=== PATIENT | female | born 2005 | race African-American/Black ===

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

== ENCOUNTER 2025-03-30 13:46 | Emergency (ER) | payer BC, OTHER, SELFPAY ==
[2025-03-30] VITALS (19 sets, daily range): BP systolic 71–97; BP diastolic 36–74
--- NOTE | 2025-03-30 15:01 | ED.GENMED ---
History of Present Illness
General
Chief Complaint: Blood Pressure Problem
Source: [facility] and previous hospital records
Exam Limitations: non verbal-adult
Time Seen by Provider: 03/30/25 14:21
Nursing documentation reviewed up to this point in time: agreed with
History of Present Illness
History of Present Illness:
The patient is a 19-year-old female from pediatric specialty cares who arrives with concerns for hypotension. Reportedly, patient had a systolic blood pressure in the 60s. The facility denies any respiratory symptoms. Patient is chronically
trached and on the ventilator. She is not able to offer any history. Patient has a history of epilepsy and cerebral palsy. Patient is generally hospitalized at [facility]. Systolic blood pressure 80s in our emergency department. Patient given
solucortef 100mg prior to arrival
Past History
Past History
ED Past Medical History: Seizures and Other (Cerebral palsy, bradycardia)
ED Past Surgical History: Other (Tracheostomy, PEG tube)
Social History
Tobacco: Non-smoker
Alcohol: None
Drug: None
Personal: Single
Living: [facility]
Employment: Other
Family History
Family History: Other
Review of Systems
Review of Systems
Allergies reviewed?: Yes
Unable to obtain full review of systems at this time due to: non-verbal
Other source history: transfer record
All Other Systems: Not applicable
Phy Exam
Physical Exam
Physical Exam:
Physical Exam
General: no apparent distress, patient appears extremely small for her age, chronically ill, trach in place on ventilator
Neck: supple. Trach in place, moist mucous membrane
Heart: Bradycardia
Lungs: no acute respiratory distress. Bilateral rhonchi
Abdomen: normal bowel sounds. not tender. PEG tube site dry and intact. Abdomen is soft throughout
Neuro: Noninteractive, moves all extremities equally
Skin: no rash
Psychiatric: well kept.
Extremities: no edema.
Course
Orders/Labs/Results
Orders:
Orders
03/30/25 13:54
Electrocardiogram (*1) Urgent
Reason for Study: Bradycardia / Tachycardia
EKG- Treatment ONCE
03/30/25 14:51
CR Chest Portable - 1 View Urgent
Comment:
Reason For Exam: hypotension
Reason Study Needs to be Portable: Unable to Transport
03/30/25 14:59
COVID-19 Antigen Urgent
Source: Nasal Swab
Urinalysis Reflex To Culture Urgent
Date Specimen was Collected: 03/30/25
Time Specimen was Collected: 14:56
Urine Microscopic Reflex Cult Urgent
INF RAPID [Influenza A+B Rapid Molecular] Urgent
[place] Source: Nasal Swab
Specimen Description:
Urine Culture Urgent
[place] Source: U
Specimen Description:
Date Specimen was Collected: 03/30/25
Time Specimen was Collected: 14:56
03/30/25 15:15
0.9% Sodium Chloride 250 ml [Nss] 250 ml IV BOLUS
03/30/25 16:38
Basic Metabolic Panel Urgent
Complete Blood Count/With Diff Urgent
Lactic Acid Urgent
Blood Culture Q30M
[place] Source: Blood/Venous
Specimen Description:
03/30/25 17:43
Piperacillin 60 mg/ml [ZOSYN (/Ped)] 3,000 mg Syringe [Syringe-Pump] 0 ml IV NOW
03/30/25 18:18
Piperacillin/Tazo 3.375 Gram [Zosyn] 3.375 gram in 50 ml IV NOW
03/30/25 19:03
0.9% Sodium Chloride 250 ml [Nss] 250 ml IV BOLUS
03/30/25 19:19
Blood Culture Q30M
[place] Source: Blood/Venous
Specimen Description:
Abnormal Lab Results
03/30/25 03/30/25
14:59 16:38
WBC 18.8 H 10^3/uL
(4.8-10.8)
MCH 32.1 H pg
(27.0-31.0)
RDW 14.6 H %
(11.5-14.5)
MPV 10.5 H fL
(7.4-10.4)
Abs Immat Gran (auto) 0.1 H 10^3/uL
(0-0.05)
Absolute Neuts (auto) 16.8 H 10^3/uL
(1.4-6.5)
Immature Gran % 0.7 H %
(0-0.5)
Neutrophils % 89.3 H %
(42.2-75.2)
Lymphocytes % 8.0 L %
(20.5-51.1)
Monocytes % 1.2 L %
(1.7-9.3)
Calcium 10.5 H mg/dl
(8.4-10.2)
Ur Occult Blood Reflex 2+ A
(Negative)
Leukocyte Esterase Rfl 3+ A
(Negative)
Urine WBC (Reflex) 30-40 A /HPF
(0-5)
Urine Bacteria (Reflex) Moderate A
(Negative)
Urine Albumin (Reflex) 2+ A
(Neg - Trace)
03/30/25 16:38
03/30/25 16:38
Vital Signs
Initial and Last Documented VS:
Initial Vital Signs
BP
97/74
03/30/25 13:50
Last Documented Vital Signs
Temp Pulse Resp BP Pulse Ox
97.3 F 45 10 71/42 100
03/30/25 16:57 03/30/25 19:00 03/30/25 19:00 03/30/25 19:00 03/30/25 19:00
MDM/Problems Addressed
Differential Diagnosis Includes:
Acute dehydration, sepsis, acute hyponatremia
MDM/Problems Addressed:
Patient presents with acute hypotension
Chronic conditions affecting care:
Chronic respiratory failure
Acute Exacerbation and/or Progression of Chronic Illness:
Patient appears comfortable on ventilator and shows no sign of respiratory distress. I do not see signs of acute respiratory distress on ventilator
*Radiology
Radiology exam reviewed: preliminary read by ED provider (Chest x-ray reviewed by me. Tube in place. No obvious infiltrate. Dilated loops of bowel as previous) and radiology read reviewed
*Pulse Oximetry
Patient hypoxic: no
Comment: Patient is at 100% on an FiO2 of 30% on the ventilator
*EKG
Interpreted by ED Provider?: Yes
Interpretation: abnormal
Comparison EKG: no changes
Rate: bradycardiac
Rhythm: sinus
[place]: normal axis
Interval: normal interval
QRS Pattern: normal QRS
Ischemia: non-specific ST changes
*Trimmer Sawyer Interpretation
Rate: bradycardiac
Interpretation: abnormal
Rhythm: sinus
*Critical Care Note
Total Time (30-74mins, 75-104mins- exclusive of procedures): 65 minutes
comment:
65 minutes of critical care given to patient including frequent reassessments of her mental status, blood pressure and heart rate. Time spent speaking to [facility] PICU team as well as reviewing her prior medical records and hospital records as well as
[facility] records
Data Reviewed
Review of Other/Old Records Reveals: Labs (Patient's urine culture showed Klebsiella in 2023)
Update Note
Update Note:
At 2:50 PM I did call patient's father, Winston Chandler and left a detailed message for him to call me back. I also tried to call patient's mother, however, the phone number did not go through
3:30 PM I did go over the case with [facility] transfer center and Dr. Pelayo (PICU doctor at [facility]) who felt that I should touch base with them in about an hour while waiting for patient's blood work to come back as well as monitoring for any hypotension
in the ED. Given patient has been at her baseline systolic blood pressure in the ED since arrival, and is afebrile, she may not be septic and need transfer
4:30 PM patient's mean arterial blood pressure at times drops and patient's white blood cell count is 18.8. Case discussed again with [facility] PICU who was agreeable to transfer. Recommended IV Zosyn and IV fluids. Patient already got stress dose
steroids prior to arrival to ED today
5:30 PM IR placed by me for IV access in the left lower leg. Patient tolerated procedure well. Will now administer IV fluids and IV Zosyn. IV appears to infiltrate. IO placed in right lower extremity with good blood return
Unfortunately right-sided IO line seem to infiltrate as well.
Peripheral IV line started
ED Attending Note
-
Portions of this chart may have been created with voice recognition software.� Occasional wrong word or��sound alike� substitutions may have occurred due to the inherent limitations of voice recognition software.
Discharge Plan
Departure
Patient Disposition: Pediatric Hospital
Date of Disposition: 03/30/25
Time of Disposition: 17:11
Admit to doctor: Dr Grey
Patient with high blood pressure during this ER visit?: No
Condition: Fair
Covid-19: Negative COVID-19
Discharge Problem:
Transient hypotension, Acute UTI, Leukocytosis
Prescriptions:
No Action
polyethylene glycol 3350 17 GRAMS powder in packet
17 grams feeding tube .0400+1700
baclofen 10 MG tablet
10 mg feeding tube TID
hydrocortisone 10 MG tablet
5 mg feeding tube .1000 +2200
Patient Comments:
03/09/22: 20mg via tube q8hprn stress dose fever, severe diarrhea, viral/bacterial illness, vomiting, serious injury. give for 24 hours and up to 72 hours
ibuprofen [Children's Ibuprofen] 100 MG/5 ML suspension
1 dose feeding tube Q6HPRN PRN (Reason: pain, temp > 101)
Patient Comments:
10 mg/kg/dose
chlorhexidine gluconate 15 ML mouthwash
10 ml mucous membrane BID
Patient Comments:
07/08/21: 10mL orally BID for oral care to swab mouth then suction (do not swallow)
levetiracetam 500 MG/5 ML solution
600 mg feeding tube TID
acetaminophen [Children's Acetaminophen] 160 MG/5 ML suspension
1 dose feeding tube Q6HPRN PRN (Reason: fever,pain,discomfort)
Patient Comments:
28-32.9kg=12.5ml, 33-43.9=15ml,>=44kg=20ml
sennosides [senna] 8.6 MG tablet
17.2 mg feeding tube BID
magnesium oxide [MagOx] 400 MG tablet
200 mg feeding tube QPM
bisacodyl [OneLAX Bisacodyl] 10 MG suppository
10 mg IA Q48H
Enema 135 ML enema
118 ml IA [id number] PRN (Reason: constipation)
benzoyl peroxide [Desquam-X] 140 ML cleanser
1 applic topical BID
white petrolatum 113 GM gel
1 applic topical PRN PRN (Reason: nasal dryness/bleeding)
phenobarbital 32.4 MG tablet
32.4 mg feeding tube BID@0800,2000
calcium carbonate 500 MG/5 ML suspension
1,000 mg feeding tube QPM
cholecalciferol (vitamin D3) 10 MCG/ML drops
400 unit feeding tube DAILY
selenium 200 MCG capsule
50 mcg feeding tube QPM
Mineral Oil Medium 500 ML oil
1 applic topical [id number] PRN (Reason: extreme dry scalp)
Patient Comments:
apply to scalp leave on overnight , wash off in morning
diazepam 20 mg Kit
15 mg IA Q5MPRN PRN (Reason: seizure)
sulfamethoxazole-trimethoprim [Sulfatrim] 200-40 mg/5 mL Suspension
8 ml feeding tube DAILY
hydrocortisone 10 mg Tablet
20 mg feeding tube Q8HPRN PRN (Reason: stress dose fever)
[facility] 10 billion cell -200 mg Capsule
1 cap PO HS
clobazam [Onfi] 10 mg Tablet
10 mg feeding tube .1000+2200
pediatric multivitamin Solution
80 ml IV .0400
Cystex Cranberry 1,937-188 mg/15 mL Liquid
15 ml PO HS
Solu-Cortef 100 mg Recon Soln
100 mg IM BID PRN (Reason: severe illness,stress,vomits, no response)
Referrals:
Valeriano Perry DO [Family Provider, Pediatrics]
Hospital Transfer
Other hospital: [facility]
I certify that the patient requires transfer: Yes
Discussed case with accepting physician: Dr. Grey
Reason for transfer: continuity of care PCP
Interventions
Interventions:
*Risk Screen - Suicide Last Done: 03/30/25 14:03
*General Assessment Last Done: 03/30/25 14:03
*Neglect/Abuse Screening Last Done: 03/30/25 14:03
*ED- Fall Risk Assessment Last Done: 03/30/25 14:51
*ED COVID-19 Vaccine History Last Done: 03/30/25 14:51
Discharge Date and Time
Print Language: YORUBA
[2025-03-30 15:10] LABS: Urine Albumin 2+ (Neg - Trace); Urine Bilirubin Negative (Negative); Urine Character Clear (Clear); Urine Color Yellow; Urine Glucose Negative (Negative); Urine Ketone Negative (Negative); Urine Leukocyte 3+ (Negative); Urine Nitrite Negative (Negative); Urine Occult Blood 2+ (Negative); Urine Urobilinogen Negative (Neg - 1+)
[2025-03-30 15:19] LABS: Urine Squamous Cell 16-20 /LPF (Few)
[2025-03-30 15:20] LABS: Urine White Cell 30-40 /HPF (0-5)
[2025-03-30 15:21] LABS: Urine Bacteria Moderate (Negative); Urine Red Blood Cell 0-2 /HPF (0-2)
[2025-03-30 15:27] LABS: COVID-19 Antigen Negative (Negative)
[2025-03-30 16:49] LABS: % Basophils 0.4 % (0-2); % Eosinophils 0.4 % (0-6); % Immature Granulocytes 0.7 % (0-0.5); % Monocytes 1.2 % (1.7-9.3); % Neutrophils 89.3 % (42.2-75.2); Absolute Basophils 0.1 10^3/uL (0-0.2); Absolute Eosinophils 0.1 10^3/uL (0-0.7); Absolute Immature Granulocytes 0.1 10^3/uL (0-0.05); Absolute Lymphocytes 1.5 10^3/uL (1.2-3.4); Absolute Monocytes 0.2 10^3/uL (0.1-0.6); Absolute Neutrophils 16.8 10^3/uL (1.4-6.5); Hematocrit 43.6 % (37.0-47.0); Hemoglobin 15.3 g/dL (12.0-16.0); Mean Corp Hgb Conc. 35.1 g/dL (33.0-37.0); Mean Corpuscular Hgb 32.1 pg (27.0-31.0); Mean Corpuscular Volume 91.6 fL (81.0-99.0); Mean Platelet Volume 10.5 fL (7.4-10.4); Nucleated Red Blood Cells % 0 %; Platelet Count 397 10^3/uL (130-400); Red Blood Cell Count 4.76 10^6/uL (4.20-5.40); Red Cell Dist. Width 14.6 % (11.5-14.5); White Blood Cell Count 18.8 10^3/uL (4.8-10.8)
[2025-03-30 17:00] LABS: Lactic Acid 1.3 mmol/L (0.7-2.0)
[2025-03-30 17:04] LABS: Blood Urea Nitrogen 13 mg/dl (7-17); Calcium 10.5 mg/dl (8.4-10.2); Carbon Dioxide 26 mmol/L (22-30); Chloride 107 mmol/L (98-107); Glucose 89 mg/dl (70-99); Sodium 143 mmol/L (135-145); eGFR > 60.00
[2025-03-30] MEDS: NSS 250 IV ×2 (17:47→19:14)
[2025-03-30] MEDS: ZOSYN 50 IV (19:07)
== END 2025-03-30 20:07 | disposition designated cancer center or children's hospital (05) ==
LOC: EMR 13:46
PROVIDERS: Emergency Medicine; EMERGENCY PHYSICIAN Emergency Medicine; FAMILY PHYSICIAN Pediatrics
DX: N39.0 Urinary tract infection, site not specified (principal); R03.1 Nonspecific low blood-pressure reading; D72.829 Elevated white blood cell count, unspecified; G80.8 Other cerebral palsy; J96.10 Chronic respiratory failure, unspecified whether with hypoxia or hypercapnia; Z99.11 Dependence on respirator [ventilator] status; G40.909 Epilepsy, unspecified, not intractable, without status epilepticus; Z11.52 Encounter for screening for COVID-19
CPT/HCPCS: 99291; 96365; 96361; 71045; 80048; 81003; 81015; 83605; 85025; 87040; 87086; 87502; 87811; 93005; 94002

== ENCOUNTER 2025-09-03 09:01 | Emergency (ER) | payer BC, OTHER, SELFPAY ==
[2025-09-03 09:07] VITALS: BP 90/53
[2025-09-03 09:10] VITALS: BP 90/53
--- NOTE | 2025-09-03 09:23 | ED.GENMED ---
History of Present Illness
General
Chief Complaint: Breathing Problem
Source: patient
Time Seen by Provider: 09/03/25 09:12
History of Present Illness
History of Present Illness:
19-year-old female sent to the emergency room from [facility] where she was having issues with hypoxia. Symptoms began today. Patient also noted to be febrile today with a rectal temperature 101. Patient has a tracheostomy and is
chronically ventilated though usually just receiving room air through the ventilator. The staff at [facility] care had titrated her oxygen up to 5 L in order to get a sufficient pulse ox. They also provided neb treatment and changed her
trach. Despite this she continued to be hypoxic prompting her transfer to the emergency room. Patient has significant developmental delay and unable to provide any history. History is provided by the paramedics and by the facilities transfer
information.
Past History
Past History
ED Past Medical History: Seizures and Other (Cerebral palsy, bradycardia)
ED Past Surgical History: Other (Tracheostomy, PEG tube)
Social History
Tobacco: Non-smoker
Alcohol: None
Drug: None
Personal: Single
Living: assisted
Employment: Other
Family History
Family History: Other
Phy Exam
Physical Exam
Physical Exam:
General: Awake, nonverbal, no apparent distress, significant developmental delay and quite small for age
Vitals: Tachypneic,
Head: Atraumatic
Eyes: Pupils equal, EOMI
Neck: Trachea midline, tracheostomy in place
Lungs: Coarse breath sounds bilaterally
Heart: Regular rate, no murmurs
Abd: Soft, feeding tube noted, No pulsatile mass
Genitalia: Meraz in place
Neuro: Eyes open, does not follow commands, moves all 4 extremities spontaneously
Skin: Warm, dry, no rash
Extremities: pulses equal b/l, no edema
Course
Orders/Labs/Results
Orders:
Orders
09/03/25 09:16
0.9% Sodium Chloride 1000 ml [Nss] 620 ml IV BOLUS
CR Chest Portable - 1 View Urgent
Comment:
Reason For Exam: fever, hypoxia
Reason Study Needs to be Portable: Patient Unstable
09/03/25 09:20
Hydrocortisone Sod Succinate [Solu-Cortef] 100 mg IV NOW STA
09/03/25 09:23
Ipratropium/Albuterol Sulfate [Duoneb] 3 ml INH R NOW STA
09/03/25 10:28
COVID-19 Antigen Urgent
Source: Nasal Swab
Influenza A+B Rapid Molecular Urgent
[place] Source: Nasal Swab
Specimen Description:
Respiratory Syncytial Virus Urgent
[place] Source: Nasal Swab
Specimen Description:
Date Specimen was Collected: 09/03/25
Time Specimen was Collected: 09:31
09/03/25 10:46
Phenobarbital [S] Urgent
09/03/25 10:47
Basic Metabolic Panel Urgent
Complete Blood Count/With Diff Urgent
Venous Blood Gas Urgent
%Oxygen/Room Air: 40
Blood Culture, Pediatric Urgent
[place] Source: Blood/Venous
Specimen Description:
Date Specimen was Collected: 09/03/25
Time Specimen was Collected: 09:31
09/03/25 11:00
Clobazam (Non-Form) [Onfi] 10 mg TUBE BID
Phenobarbital [Luminal] 32.4 mg TUBE BID
09/03/25 11:06
Urinalysis Reflex To Culture Urgent
Date Specimen was Collected: 09/03/25
Time Specimen was Collected: 09:31
Urine Microscopic Reflex Cult Urgent
Urine Culture Urgent
[place] Source: U
Specimen Description:
Date Specimen was Collected: 09/03/25
Time Specimen was Collected: 09:31
09/03/25 12:29
Cefepime HCl [Maxipime] 1,500 mg 0.9% Sodium Chloride 50 ml [Nss] 50 ml IV NOW
09/03/25 13:03
Meraz [Meraz Placement- Treatment] ONCE
Reason for insertion: Chronic Meraz on Admit
09/03/25 14:00
Levetiracetam [Keppra] 600 mg TUBE TID@0400,1400,2100
Abnormal Lab Results
09/03/25 09/03/25
10:47 11:06
WBC 17.0 H 10^3/uL
(4.8-10.8)
MCH 31.5 H pg
(27.0-31.0)
MPV 10.7 H fL
(7.4-10.4)
Abs Immat Gran (auto) 0.1 H 10^3/uL
(0-0.05)
Absolute Neuts (auto) 15.0 H 10^3/uL
(1.4-6.5)
Absolute Lymphs (auto) 0.7 L 10^3/uL
(1.2-3.4)
Absolute Monos (auto) 1.1 H 10^3/uL
(0.1-0.6)
Neutrophils % 88.0 H %
(42.2-75.2)
Lymphocytes % 4.3 L %
(20.5-51.1)
VBG pO2 73 H mmHg
(30-50)
VBG HCO3 30.5 H mmol/L
(22-27)
Potassium 3.2 L mmol/L
(3.5-5.1)
Creatinine 0.5 L mg/dL
(0.6-1.0)
Ur Occult Blood Reflex 3+ A
(Negative)
Leukocyte Esterase Rfl 3+ A
(Negative)
Urine WBC (Reflex) 21-25 A /HPF
(0-5)
Urine Bacteria (Reflex) Many A
(Negative)
Urine Albumin (Reflex) 3+ A
(Neg - Trace)
09/03/25 10:47
09/03/25 10:47
Vital Signs
Initial and Last Documented VS:
Initial Vital Signs
Pulse Ox
99
09/03/25 09:04
Last Documented Vital Signs
Temp Pulse Resp BP Pulse Ox
99.6 F 57 15 75/48 99
09/03/25 09:10 09/03/25 12:15 09/03/25 12:15 09/03/25 12:00 09/03/25 11:32
MDM/Problems Addressed
Differential Diagnosis Includes:
Pneumonia, viral illness such as COVID, influenza, UTI, tracheitis
MDM/Problems Addressed:
Stress dose steroids administered given the patient's takes chronic steroids. White count is elevated. Could be from chronic steroid use or acute infection. Chest x-ray has new changes which certainly could be an acute pneumonia. IV antibiotics
administered. Patient will be transferred to [facility].
*Radiology
Radiology exam reviewed: radiology read reviewed
*Pulse Oximetry
SaO2: 98
Oxygen Mode of Delivery: Trach collar
Patient hypoxic: no
*Early Breastfeeding Care Specialist Interpretation
Rate: normal
Interpretation: normal
Rhythm: sinus
*Critical Care Note
Total Time (30-74mins, 75-104mins- exclusive of procedures): Not Applicable
ED Attending Note
-
Portions of this chart may have been created with voice recognition software.� Occasional wrong word or��sound alike� substitutions may have occurred due to the inherent limitations of voice recognition software.
Discharge Plan
Departure
Patient Disposition: Pediatric Hospital
Date of Disposition: 09/03/25
Time of Disposition: 11:43
Condition: Fair
Discharge Problem:
Hypoxia, Pneumonia
Prescriptions:
No Action
polyethylene glycol 3350 17 GRAMS powder in packet
17 grams feeding tube .0400+1700
baclofen 10 MG tablet
10 mg feeding tube TID
hydrocortisone 10 MG tablet
5 mg feeding tube .1000 +2200
Patient Comments:
03/09/22: 20mg via tube [id number] stress dose fever, severe diarrhea, viral/bacterial illness, vomiting, serious injury. give for 24 hours and up to 72 hours
ibuprofen [Children's Ibuprofen] 100 MG/5 ML suspension
1 dose feeding tube Q6HPRN PRN (Reason: pain, temp > 101)
Patient Comments:
10 mg/kg/dose
chlorhexidine gluconate 15 ML mouthwash
10 ml mucous membrane BID
Patient Comments:
07/08/21: 10mL orally BID for oral care to swab mouth then suction (do not swallow)
levetiracetam 500 MG/5 ML solution
600 mg feeding tube TID
acetaminophen [Children's Acetaminophen] 160 MG/5 ML suspension
1 dose feeding tube Q6HPRN PRN (Reason: fever,pain,discomfort)
Patient Comments:
28-32.9kg=12.5ml, 33-43.9=15ml,>=44kg=20ml
sennosides [senna] 8.6 MG tablet
17.2 mg feeding tube BID
magnesium oxide [MagOx] 400 MG tablet
200 mg feeding tube QPM
bisacodyl [OneLAX Bisacodyl] 10 MG suppository
10 mg WA Q48H
Enema 135 ML enema
118 ml WA [id number] PRN (Reason: constipation)
benzoyl peroxide [Desquam-X] 140 ML cleanser
1 applic topical BID
white petrolatum 113 GM gel
1 applic topical PRN PRN (Reason: nasal dryness/bleeding)
phenobarbital 32.4 MG tablet
32.4 mg feeding tube BID@0800,2000
calcium carbonate 500 MG/5 ML suspension
1,000 mg feeding tube QPM
cholecalciferol (vitamin D3) 10 MCG/ML drops
400 unit feeding tube DAILY
selenium 200 MCG capsule
50 mcg feeding tube QPM
Mineral Oil Medium 500 ML oil
1 applic topical [id number] PRN (Reason: extreme dry scalp)
Patient Comments:
apply to scalp leave on overnight , wash off in morning
diazepam 20 mg Kit
15 mg WA Q5MPRN PRN (Reason: seizure)
sulfamethoxazole-trimethoprim [Sulfatrim] 200-40 mg/5 mL Suspension
8 ml feeding tube DAILY
hydrocortisone 10 mg Tablet
20 mg feeding tube Q8HPRN PRN (Reason: stress dose fever)
[facility] 10 billion cell -200 mg Capsule
1 cap PO HS
clobazam [Onfi] 10 mg Tablet
10 mg feeding tube .1000+2200
pediatric multivitamin Solution
80 ml IV .0400
Cystex Cranberry 1,937-188 mg/15 mL Liquid
15 ml PO HS
Solu-Cortef 100 mg Recon Soln
100 mg IM BID PRN (Reason: severe illness,stress,vomits, no response)
Referrals:
Valeriano Perry DO [Family Provider, Pediatrics]
Hospital Transfer
Other hospital: [facility]
I certify that the patient requires transfer: Yes
Discussed case with accepting physician: Dr Hyde
Reason for transfer: availability of service
Interventions
Interventions:
*Risk Screen - Suicide Last Done: 09/03/25 11:26
*General Assessment Last Done: 09/03/25 09:03
*Neglect/Abuse Screening Last Done: 09/03/25 09:03
*ED- Fall Risk Assessment Last Done: 09/03/25 10:24
*ED COVID-19 Vaccine History Last Done: 09/03/25 10:25
*ED Influenza Vaccine History Last Done: 09/03/25 10:24
*Nursing Disposition Last Done: 09/03/25 13:15
ED- Cardiac Assessment Last Done: 09/03/25 10:24
ED- Pulmonary Assessment Last Done: 09/03/25 10:24
Discharge Date and Time
Discharge Date/Time: 09/03/25 13:50
Print Language: FAROESE
[2025-09-03 11:01] LABS: COVID-19 Antigen Negative (Negative)
[2025-09-03 11:04] LABS: Hematocrit 42.8 % (37.0-47.0); Hemoglobin 15.1 g/dL (12.0-16.0); Mean Corp Hgb Conc. 35.3 g/dL (33.0-37.0); Mean Corpuscular Volume 89.4 fL (81.0-99.0); Nucleated Red Blood Cells % 0 %; Platelet Count 201 10^3/uL (130-400); Red Cell Dist. Width 13.8 % (11.5-14.5)
[2025-09-03 11:05] LABS: Venous Blood Gas B.E. 5.1 mmol/L (-4 to +4); Venous Blood Gas O2 Sat % 95.3 %
[2025-09-03] MEDS: NSS 620 IV (11:06)
[2025-09-03] MEDS: SOLU-CORTEF 100 MG IV (11:07)
[2025-09-03] MEDS: DUONEB 3 ML INH (11:08)
[2025-09-03 11:15] VITALS: BP 72/47
[2025-09-03 11:17] LABS: Urine Character Cloudy (Clear)
[2025-09-03 11:17] LABS: Blood Urea Nitrogen 11 mg/dl (7-17); Calcium 9.9 mg/dl (8.4-10.2); Carbon Dioxide 28 mmol/L (22-30); Chloride 101 mmol/L (98-107); Glucose 87 mg/dl (70-99); Potassium 3.2 mmol/L (3.5-5.1); Sodium 136 mmol/L (135-145); eGFR > 60.00
[2025-09-03 11:23] LABS: Urine Squamous Cell >30 /LPF (Few)
[2025-09-03 11:24] LABS: Urine Red Blood Cell 0-2 /HPF (0-2); Urine White Cell 21-25 /HPF (0-5)
[2025-09-03 11:32] VITALS: BP 77/45
[2025-09-03] MEDS: ONFI 10 MG TUBE (11:38)
[2025-09-03] MEDS: LUMINAL 32.4 MG TUBE (11:38)
[2025-09-03 12:00] VITALS: BP 75/48
[2025-09-03] MEDS: MAXIPIME 66.95 MG IV (12:59)
== END 2025-09-03 13:50 | disposition designated cancer center or children's hospital (05) ==
LOC: EMR 09:01
PROVIDERS: EMERGENCY PHYSICIAN Emergency Medicine; FAMILY PHYSICIAN Pediatrics
DX: J18.9 Pneumonia, unspecified organism (principal); R09.02 Hypoxemia; G80.9 Cerebral palsy, unspecified; Z93.0 Tracheostomy status; Z11.52 Encounter for screening for COVID-19
CPT/HCPCS: 99285; 94640; 96375; 96365; 96361; 71045; 80048; 80184; 81003; 81015; 82805; 85025; 87040; 87086; 87502; 87807; 87811; 94002